=== PATIENT | male | born 2000 | race Caucasian/White ===

== ENCOUNTER 2022-08-17 13:02 | Emergency (ER) | payer OTHER, SELFPAY ==
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
[2022-08-17 13:12] VITALS: BP 130/74; PULSE 100; RESP 16; TEMP 36.6; O2SAT 100
[2022-08-17] MEDS: IBUPROFEN 600 MG TABLET PO (13:31)
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
== END 2022-08-17 15:26 | disposition home or self-care (01) ==
PROVIDERS: Emergency Provider Emergency Medicine
DX: S62.643A Nondisplaced fracture of proximal phalanx of left middle finger, initial encounter for closed fracture (principal); V48.5XXA Car driver injured in noncollision transport accident in traffic accident, initial encounter
CPT/HCPCS: 29130; 73130; 99284; A9270